=== PATIENT | female | born 1995 | race Caucasian/White ===

== ENCOUNTER 2016-04-30 02:27 | Emergency (ER) | payer OTHER ==
[~2016-04-30] VITALS: Ht 160 cm; Wt 59.0 kg
[~2016-04-30 02:27] MED LIST: CEPH-443 PO; CEPH500C PO; HYDR28.334 TP; IBUP-1542 PO; NITR-58 PO; PHEN-538 PO; PHEN95TA29 PO; UDROBDM PO
[2016-04-30 02:39] VITALS: Ht 160 cm; Wt 59.0 kg
[2016-04-30] MEDS ORDERED: CEFTRIAXONE 250 MG INJ IM ONE (05:00)
[2016-04-30] MEDS ORDERED: AZITHROMYCIN 250 MG TAB PO ONE (05:00)
[2016-04-30 05:03] LABS: URINE BLOOD (Dip) POC Negative (NEGATIVE)
[2016-04-30] MEDS ORDERED: NITR-58 PO (05:25)
--- NOTE | 2016-04-30 05:48 | ERD ---
ER Documentation Chief Complaint Date/Time DATE: 04/30/16 TIME: 05:45 Chief Complaint burning pain when urinating HPI This is a 20-year-old female presents to the ER with burning with urination frequency and urination. Patient is also complaining of green yellowish vaginal discharge. She denies any foul-smelling discharge. She does admit to vaginal itching. Patient has had chlamydia in the past. Patient is currently sexually active with one person and does not always use condoms. Patient has an Implanon in place for control. She denies fevers or chills. She denies any pelvic pain. ROS 12 point review of systems was done, all negative except per HPI. Medications Home Meds Active Scripts Nitrofurantoin Monohyd Macrocr* (Macrobid*) 100 Mg Capsr, 100 MG PO BID for 7 Days, CAP Prov:ANDREA COOK 04/30/16 Guaifenesin-Dextromethorphan* (Robitussin* DM) 100MG/10MG/5ML Syrup, 5 ML PO Q6H Y for COUGH, #120 ML Prov:JEFFREY CONTEH DO 03/11/16 Ibuprofen* (Motrin*) 600 Mg Tab, 600 MG PO Q8, #12 TAB Prov:JEFFREY CONTEH DO 03/11/16 Cephalexin* (Keflex*) 500 Mg Capsule, 500 MG PO BID for 10 Days, CAP Prov:JAXON BUTLER PA-C 01/18/16 Hydrocortisone (Hydrocortisone Cr) 28.35 Gm Cr, 1 APPLIC TP BID for 7 Days, #1 Prov:JAXON BUTLER PA-C 01/18/16 Phenazopyridine Hcl* (AZO*) 95 Mg Tablet, 95 MG PO TID, #10 TAB Prov:JAXON BUTLER PA-C 10/20/15 Nitrofurantoin Monohyd Macrocr* (Macrobid*) 100 Mg Capsr, 100 MG PO BID for 7 Days, CAP Prov:JAXON BUTLER PA-C 10/20/15 Phenazopyridine Hcl* (Pyridium*) 200 Mg Tab, 200 MG PO TID Y for URINARY PAIN for 2 Days, #6 TAB Prov:ROSEMARY GUTIERREZ PA-C 08/23/15 Nitrofurantoin Monohyd Macrocr* (Macrobid*) 100 Mg Capsr, 100 MG PO BID for 7 Days, CAP Prov:ROSEMARY GUTIERREZ PA-C 08/23/15 Cephalexin* (Cephalexin*) 500 Mg Capsule, 500 MG PO QID for 7 Days, CAP Prov:GUY YOUNGER PA-C 08/24/14 Allergies Allergies: Coded Allergies: No Known Allergy (Unverified , 08/24/14) PMhx/Soc History of Surgery: No Anesthesia Reaction: No Hx Neurological Disorder: No Hx Respiratory Disorders: No Hx Cardiac Disorders: No Hx Psychiatric Problems: No Hx Miscellaneous Medical Probl: Yes (HX OF CHLAMYDIA BUT WAS TREATED IN Dec.) Hx Alcohol Use: Yes Hx Substance Use: No Hx Tobacco Use: No Smoking Status: Never smoker Physical Exam Vitals Vital Signs Date Time Temp Pulse Resp B/P Pulse Ox O2 Delivery O2 Flow Rate FiO2 04/30/16 02:39 98.5 72 18 113/69 99 Physical Exam Const: [] Head: Atraumatic Eyes: Normal Conjunctiva Neck: Full range of motion..~ No meningismus. Resp: Clear to auscultation bilaterally Cardio: Regular rate and rhythm, no murmurs Abd: Soft, non tender, non distended. Normal bowel sounds Skin: No petechiae or rashes Back: No midline or flank tenderness Neur: Awake and alert Psych: Normal Mood and Affect Results 24 hrs Laboratory Tests Test 04/30/16 05:05 Bedside Urine Blood Negative Bedside Urine Glucose (UA) Negative Bedside Urine Ketones (LAB) Negative Bedside Urine Leukocyte Esterase (L 2+ Bedside Urine Nitrite (LAB) Negative Bedside Urine Protein (LAB) Negative Bedside Urine pH (LAB) 5.5 Current Medications Medications (Trade) Dose Ordered Sig/Ludivina Route PRN Reason Start Time Stop Time Status Last Admin Dose Admin Ceftriaxone Sodium (Rocephin) 250 mg ONCE ONCE IM 04/30/16 05:00 04/30/16 05:01 04/30/16 04:54 Azithromycin (Zithromax) 1,000 mg ONCE ONCE PO 04/30/16 05:00 04/30/16 05:01 04/30/16 04:53 Procedures/MDM This is a 20-year-old female presents to the ER with urinary frequency and dysuria. Patient was found to have a urinary tract infection here in the ER. Suspicion for pyelonephritis is low. Patient does not have any CVA tenderness is afebrile and well-appearing. Patient does complain of vaginal discharge. Patient will be referred for potential exercising urine will be sent to the lab. Patient for bacterial vaginosis is low. Patient does not have any foul- smelling discharge. Suspicion for PID is low patient does not have any pelvic pain. She needs to follow-up with her primary care doctor within 1-2 days return to ER sooner symptoms worsen. My medical decision making was shared with the patient she understands and agrees with plan. Departure Diagnosis: Primary Impression: UTI (urinary tract infection) Condition: Stable Patient Instructions: Understanding Urinary Tract Infections (UTIs) Additional Instructions: Call your primary care doctor TOMORROW for an appointment during the next 1-2 days.See the doctor sooner or return here if your condition worsens before your appointment time. ANDREA COOK Apr 30, 2016 05:47
[2016-04-30 06:14] VITALS: BP 110/72; PULSE 70; RESP 18; TEMP 98.2
== END 2016-04-30 06:15 | disposition home or self-care (01) ==
LOC: FTE 02:27
DX: N39.0 Urinary tract infection, site not specified (principal)
CPT/HCPCS: 81003; 87591; J0696; Z7610; 96372